=== PATIENT | female | born 1950 | race Caucasian/White ===

== ENCOUNTER 2023-08-08 08:45 | Day surgery (SDC) | payer MEDICARE, OTHER, SELFPAY ==
--- NOTE | 2023-08-08 | PATH_ITS ---
[facility] Accession Number: [id number] No. of containers..03 Tissue . 01 Material submitted: . PART A: colon - DISTAL TRANSVERSE POLYP PART B: colon - CECAL POLYPS PART C: colon - POLYP @ 40 CM . 01 Diagnosis: Part A: DISTAL TRANSVERSE POLYP: Sessile serrated adenoma. . Part B: CECAL POLYPS: Sessile serrated adenomas. . Part C: POLYP @ 40 CM: Fragments of red blood clot. No mucosal tissue present. [facility] 08/15/2023 1306 Local . 01 Electronically signed: . Lorenzo Waldron MD, Pathologist NPI- [id number] . 01 Gross description: . Part A: DISTAL TRANSVERSE POLYP: Received in formalin are 2 fragment(s) of borjas, soft tissue measuring 0.1 x 0.1 x 0.1 cm to 0.3 x 0.3 x 0.2 cm submitted entirely in 1 cassette(s) . Part B: CECAL POLYPS: Received in formalin are multiple fragment(s) of borjas, soft tissue measuring 0.2 x 0.2 x 0.1 cm to 0.5 x 0.5 x 0.4 cm submitted entirely in 1 cassette(s) . Part C: POLYP @ 40 CM: Received in formalin is clot measuring 2.0 x 2.0 x 0.3 cm in aggregate. Specimen is submitted in toto in 1 cassette. /[facility] 08/15/2023 1306 Local . 01 Pathologist provided ICD-10: D12.0, D12.3 . 01 CPT . 685691, [id number], 289418 Specimen Comment: A courtesy copy of this report has been sent to [phone] Performed at: 01 [facility] [address] [facility], [place], [place] [id number] MD Lorenzo Waldron MD Phone: [phone]
[2023-08-08 09:19] VITALS: BP 141/94; PULSE 84; RESP 20; TEMP 36.6; O2SAT 96
[2023-08-08] MEDS: LACTATED RINGERS 1,000 ML 42 ML IV (09:19)
--- NOTE | 2023-08-08 09:23 | PM.OP.COLON ---
Operative Date/Time/Diagnoses Date of procedure: 08/08/23 Pre-op diagnosis: See indication and findings Procedure & Clinicians Study performed: Colonoscopy Indications: Positive fecal occult blood/Cologuard Surgeon: Teressa Arizmendi Procedure Notes Procedure in detail: After informed consent was obtained the patient was placed in left lateral decubitus position. The video colonoscope was introduced the rectum slowly advanced cecum. Preparation was good. On slow withdrawal mucosa was carefully examined. The scope was removed. The patient tolerated procedure well. Blood loss none Complications none Sedation mac Findings 1. Significant sigmoid diverticulosis 2. 8 mm polyp at 40 cm cold snared and removed completely Three. 10 mm polyp in the distal transverse colon Jumbo biopsy removed completely. There was some bleeding afterwards which stopped spontaneously. 4. Two cecal polyps with mucus cap. The 1 closest to the appendiceal orifice was approximately 1 cm. This was injected with 2 cc of saline and using a hot snared removed completely. The other polyp was a bit more distal but still within the cecum. This was at least 2.5 cm in size. Again this was injected with 2-3 cc of saline and eventually abscess mm of spot. Three large chunks were taken off with hot snare and the remainder of the area treated with pulsed APC. All it is a recovered. Will follow-up with the pathology on care olds polyps particularly the cecal polyps. At the very lesion will need follow-up in 3-6 months to evaluate the cecum ensure that there is thank complete.
--- NOTE | 2023-08-08 09:24 | P.HP_ITS ---
History of Present Illness History of Present Illness Date Patient Seen: 08/08/23 Chief complaint: Colonoscopy Narrative: Cologuard positive [facility] Social History Smoking Status: Never smoker alcohol intake: current Meds Home Medications and Allergies Home Medications Medication Instructions Recorded Confirmed Type levothyroxine 88 mcg tablet 88 mcg PO DAILY 08/08/23 08/08/23 History (Synthroid) losartan 50 mg tablet 50 mg PO DAILY 08/08/23 08/08/23 History Allergies Allergy/AdvReac Type Severity Reaction Status Date / Time lisinopril AdvReac Intermediate Cough Verified 08/08/23 09:11 Exam Vital Signs (past 8 hours): - 08/08/23 09:19 Temperature 97.9 F Pulse Rate 84 Respiratory Rate 20 Blood Pressure 141/94 H Pulse Oximetry 96 Oxygen Delivery Method Room Air Oxygen Delivery Method Room Air Narrative Exam Narrative: Oropharynx free of lesions Chest clear to auscultation percussion Cardiac exam reveals no S3 or murmur Assessment & Plan Assessment & Plan narrative: Cologuard positivity need for full colonoscopy. Risks, benefits, alternatives have been explained. Further recommendations will follow the results of the study.
[2023-08-08 10:29] VITALS: BP 117/66; PULSE 63; RESP 17; TEMP 36.3; O2SAT 92
[2023-08-08 10:34] VITALS: BP 108/64; PULSE 71; RESP 18; O2SAT 94
[2023-08-08 10:40] VITALS: BP 136/72; PULSE 71; RESP 16; TEMP 36.3; O2SAT 93
[2023-08-08 10:46] VITALS: BP 141/91; PULSE 61; RESP 16; O2SAT 95
== END 2023-08-08 11:00 | disposition home or self-care (01) ==
PROVIDERS: Referring Provider Internal Medicine Gastroenterology; Visit Provider Internal Medicine Gastroenterology
PROC: 0DJD8ZZ Inspection of Lower Intestinal Tract, Via Natural or Artificial Opening Endoscopic (ICD-10-PCS; CPT 45378; principal; 2023-08-08 10:00)
DX: Z12.11 Encounter for screening for malignant neoplasm of colon (principal); R19.5 Other fecal abnormalities; K57.30 Diverticulosis of large intestine without perforation or abscess without bleeding; D12.0 Benign neoplasm of cecum; D12.3 Benign neoplasm of transverse colon
CPT/HCPCS: 45381; 45385; 45380; J2704